=== PATIENT | female | born 1980 | race Hispanic/Latino ===

== ENCOUNTER 2017-01-24 14:02 | Emergency (ER) | payer MEDICAID ==
[2017-01-24 14:09] VITALS: TEMP 97.9
[2017-01-24] MEDS ORDERED: Sodium Chloride 0.9% 1,000 ML IV STA (14:15)
[2017-01-24 14:55] LABS: RBC URINE 11 /hpf (0-3); URINE BACTERIA RARE (<OCC); URINE BILIRUBIN NEGATIVE (NEGATIVE); URINE BLOOD MODERATE (NEGATIVE); URINE COLOR STRAW (YELLOW); URINE GLUCOSE (UA) NEG (Normal); URINE KETONE TRACE mg/dL (NEGATIVE); URINE LEUKOCYTE ESTERASE NEG Leu/uL (Negative); URINE PROTEIN NEGATIVE (NEGATIVE); URINE UROBILINOGEN 0.2-1.0 mg/dL (0.2-1.0); WBC URINE 2 /hpf (0-5)
[2017-01-24 15:08] LABS: BASO % 0.3 % (0.0-2.0); EOS # 0.2 K/uL (0.0-0.7); EOS % 1.8 % (0.0-4.0); HEMATOCRIT 41.8 % (34.0-47.0); LYMPH # 1.6 K/uL (1.0-4.3); MEAN CELL VOLUME 95.2 fl (81.0-99.0); MEAN CORPUSCULAR HEMOGLOBIN 31.8 pg (27.0-31.0); MEAN CORPUSCULAR HGB CONC 33.4 g/dL (33.0-37.0); MEAN PLATELET VOLUME 9.3 fl (7.2-11.7); MONO # 0.4 K/uL (0.0-0.8); MONO % 4.3 % (0.0-10.0); NEUT # 7.7 K/uL (1.8-7.0); NEUT % 77.6 % (50.0-75.0); RED CELL DISTRIBUTION WIDTH 13.3 % (11.5-14.5); WHITE BLOOD COUNT 9.9 K/uL (4.8-10.8)
[2017-01-24 15:18] LABS: ALB/GLOB RATIO 1.5 (1.0-2.1); ALKALINE PHOSPHATASE 75 U/L (38-126); ALT/SGPT 57 U/L (9-52); AST/SGOT 36 U/L (14-36); BLOOD UREA NITROGEN 14 mg/dl (7-17); CALCIUM 9.9 mg/dL (8.4-10.2); CARBON DIOXIDE 25 mmol/L (22-30); CHLORIDE 100 mmol/L (98-107); GFR AFRICAN-AMERICAN > 60; GLUCOSE,RANDOM 108 mg/dL (65-105); POTASSIUM 3.7 MMOL/L (3.6-5.0); SODIUM 139 mmol/l (132-148); TOTAL PROTEIN 8.4 G/DL (6.3-8.2)
--- NOTE | 2017-01-24 16:45 | ED PDOC ---
HPI: General Adult Time Seen by Provider: 01/24/17 14:09 Chief Complaint (Nursing): Female Genitourinary Chief Complaint (Provider): Female Genitourinary History Per: Patient History/Exam Limitations: no limitations Onset/Duration Of Symptoms: Days (x2 days) Current Symptoms Are (Timing): Still Present Additional Complaint(s): 36 y/o female presents to the emergency department with a complaint of bilateral flank pain, bladder fullness, and fatigue x2 days. Reports she urinates normally with some frequency. States she was diagnosed in the past with "distressed kidneys," but unsure of specific diagnosis and etiology of stressed kidneys. Denies history of alcohol abuse, fever, or abdominal pain. Past Medical History Reviewed: Historical Data, Nursing Documentation, Vital Signs Vital Signs: Last Vital Signs Temp 97.9 F 01/24/17 14:07 Pulse 85 01/24/17 14:07 Resp 16 01/24/17 14:07 BP 154/84 H 01/24/17 14:07 Pulse Ox 100 01/24/17 16:51 - Medical History PMH: No Chronic Diseases - Surgical History Surgical History: No Surg Hx - Family History Family History: States: Unknown Family Hx - Allergies Allergies/Adverse Reactions: Allergies Allergy/AdvReac Type Severity Reaction Status Date / Time No Known Allergies Allergy Verified 01/24/17 14:07 Review of Systems ROS Statement: Except As Marked, All Systems Reviewed And Found Negative Constitutional: Positive for: Other (Fatigue). Negative for: Fever Gastrointestinal: Negative for: Abdominal Pain Genitourinary Female: Positive for: Frequency (with bladder fullness) Musculoskeletal: Positive for: Other (Flank pain b/l) Physical Exam - Reviewed Nursing Documentation Reviewed: Yes Vital Signs Reviewed: Yes - Physical Exam Appears: Positive for: Well, Non-toxic, No Acute Distress Head Exam: Positive for: ATRAUMATIC, NORMAL INSPECTION, NORMOCEPHALIC Skin: Positive for: Normal Color, Warm, Dry Eye Exam: Positive for: Normal appearance ENT: Positive for: Normal ENT Inspection Neck: Positive for: Normal, Supple Cardiovascular/Chest: Positive for: Regular Rate, Rhythm. Negative for: Murmur Respiratory: Positive for: Normal Breath Sounds. Negative for: Accessory Muscle Use, Wheezing, Respiratory Distress Gastrointestinal/Abdominal: Positive for: Normal Exam, Soft. Negative for: Tenderness Extremity: Positive for: Normal ROM. Negative for: Pedal Edema Neurologic/Psych: Positive for: Alert, Oriented (x3) - Laboratory Results Result Diagrams: 01/24/17 15:04 01/24/17 15:04 - ECG O2 Sat by Pulse Oximetry: 100 (RA) Pulse Ox Interpretation: Normal Medical Decision Making Medical Decision Making: Time: 14:15 Initial impression: Work up for possible UTI/ renal colic/ kidney injuries/ other with IV fluids and blood work Initial plan: --CMP --Urine Preg-DIP --CBC w/ diff --Sodium Chloride 1L IV --Urine Culture --Urinalysis --Renal US --Reevaluation Time: 16:54 --Renal US FINDINGS: RIGHT KIDNEY: Measures: 9.4 cm. Normal in size, contour and echogenicity. No stone, solid mass lesion or hydronephrosis visualized. LEFT KIDNEY: Measures: 11.3 cm. Normal in size, contour and echogenicity. No stone, solid mass lesion or hydronephrosis visualized. OTHER FINDINGS: None. IMPRESSION: Normal examination. Scribe Attestation: Documented by Fanny Shen, acting as a scribe for Félix Trotter MD. Provider Scribe Attestation: All medical record entries made by the Scribe were at my direction and personally dictated by me. I have reviewed the chart and agree that the record accurately reflects my personal performance of the history, physical exam, medical decision making, and the department course for this patient. I have also personally directed, reviewed, and agree with the discharge instructions and disposition. Disposition - Disposition Forms: [employer] (Hebrew)
--- NOTE | 2017-01-24 16:56 | US ---
PROCEDURE: Ultrasound of the Kidneys HISTORY: b/l flank pain COMPARISON: None available. TECHNIQUE: Grayscale imaging was performed. FINDINGS: RIGHT KIDNEY: Measures: 9.4 cm. Normal in size, contour and echogenicity. No stone, solid mass lesion or hydronephrosis visualized. LEFT KIDNEY: Measures: 11.3 cm. Normal in size, contour and echogenicity. No stone, solid mass lesion or hydronephrosis visualized. OTHER FINDINGS: None. IMPRESSION: Normal examination.
[2017-01-24 18:11] VITALS: BP 148/80; PULSE 80; RESP 18; O2SAT 98
== END 2017-01-24 18:11 | disposition home or self-care (01) ==
LOC: H.ER 14:02
DX: N20.0 Calculus of kidney (principal); R53.83 Other fatigue
CPT/HCPCS: 76770; 80053; 81003; 81025; 85025; 87086; 87181; 99283; J7040

== ENCOUNTER 2017-01-25 11:20 | Emergency (ER) | payer SELFPAY ==
[2017-01-25 11:25] VITALS: BP 129/80; PULSE 89; TEMP 98; O2SAT 100
[2017-01-25 11:27] VITALS: BMI 21.9
--- NOTE | 2017-01-25 12:08 | ED PDOC ---
HPI: CCC, URI, Sore Throat Time Seen by Provider: 01/25/17 11:59 Chief Complaint (Nursing): ENT Problem History Per: Patient History/Exam Limitations: no limitations Have you had recent travel within the past 21 days to any of the following countries: [place], [place], [place] or [place]?: No Onset/Duration Of Symptoms: Days Current Symptoms Are (Timing): Still Present Location Of Pain: Throat, Sinus/es Sick Contacts (Context): Friend(s) Associated Symptoms: Fever (subjective), Sore Throat, Cough, Sinus Drainage Ear Symptoms: Bilateral: None Severity: Mild Additional Complaint(s): complains of subjective fever, cough and runny nose since yesterday. Patient attempted to go to clinic but was unable to be seen today. 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 Past Medical History Reviewed: Historical Data, Nursing Documentation, Vital Signs Vital Signs: Last Vital Signs Temp 98 F 01/25/17 11:24 Pulse 89 01/25/17 11:24 Resp BP 129/80 01/25/17 11:24 Pulse Ox 100 01/25/17 12:08 - Medical History PMH: No Chronic Diseases - Surgical History Surgical History: No Surg Hx - Family History Family History: States: Unknown Family Hx - Living Arrangements Living Arrangements: Other (nursing home) - Home Medications Home Medications: Ambulatory Orders Medication Instructions Recorded Ciprofloxacin [Cipro] 500 mg PO BID #10 tab 01/24/17 Naproxen [Naprosyn] 500 mg PO BID PRN #14 tablet 01/24/17 Azithromycin [Zithromax] 250 mg PO DAILY #6 tab 01/25/17 - Allergies Allergies/Adverse Reactions: Allergies Allergy/AdvReac Type Severity Reaction Status Date / Time No Known Allergies Allergy Verified 01/24/17 14:07 Review of Systems Constitutional: Positive for: Fever (subjective). Negative for: Chills, Sweats Eyes: Negative for: Vision Change ENT: Positive for: Nose Congestion, Throat Pain. Negative for: Ear Pain Cardiovascular: Negative for: Chest Pain, Palpitations Respiratory: Positive for: Cough. Negative for: Shortness of Breath, Sputum Gastrointestinal: Negative for: Vomiting, Abdominal Pain, Diarrhea Musculoskeletal: Positive for: Back Pain Skin: Negative for: Rash Neurological: Positive for: Headache. Negative for: Dizziness Physical Exam - Reviewed Nursing Documentation Reviewed: Yes Vital Signs Reviewed: Yes - Physical Exam Appears: Positive for: Non-toxic, No Acute Distress Head Exam: Positive for: ATRAUMATIC, NORMAL INSPECTION, NORMOCEPHALIC Skin: Positive for: Warm, Dry. Negative for: Rash Eye Exam: Positive for: Normal appearance, EOMI, PERRL ENT: Positive for: TM Is/Are (normal pearly), Nasal Congestion, Pharyngeal Erythema. Negative for: Tonsillar Exudate, Tonsillar Swelling Neck: Positive for: Normal, Painless ROM Cardiovascular/Chest: Positive for: Regular Rate, Rhythm, Chest Non Tender. Negative for: Murmur Respiratory: Positive for: Normal Breath Sounds. Negative for: Wheezing, Respiratory Distress Gastrointestinal/Abdominal: Positive for: Soft. Negative for: Tenderness Extremity: Positive for: Normal ROM. Negative for: Tenderness, Deformity, Swelling Neurologic/Psych: Positive for: Alert, Oriented - ECG O2 Sat by Pulse Oximetry: 100 Medical Decision Making Medical Decision Making: Patient with cough and congestion, no fever and benign exam. Symptoms likely viral however patient insisting on antibiotics because she needs to get better. Advise patient on supportive treatment and will give Rx if symptoms persist Disposition - Clinical Impression Clinical Impression: Upper respiratory infection - Patient ED Disposition Is Patient to be Admitted: No Counseled Patient/Family Regarding: Diagnosis, Rx Given - Disposition Referrals: [facility] [Outside] Disposition: Routine/Home Disposition Time: 12:07 Condition: STABLE Additional Instructions: Take Tylenol or Motrin alternating every 4-6 hours for Fever 100.4F or higher. Rest and drink plenty of fluids. Try taking over the counter antihistamine ( Claritin, Angelia, Zyrtec), Decongestant or Cough medicine (Mucinex) as needed every 6-8 hours. Follow up with your primary medical doctor or clinic in 1 week for further evaluation. Prescriptions: Azithromycin [Zithromax] 250 mg PO DAILY #6 tab Instructions: Upper Respiratory Infection (ED) Forms: [employer] (Frisian) - POA Present On Arrival: None
== END 2017-01-25 14:19 | disposition home or self-care (01) ==
LOC: H.ER 11:20
DX: J06.9 Acute upper respiratory infection, unspecified (principal)

== ENCOUNTER 2017-06-18 15:47 | Emergency (ER) | payer OTHER ==
[2017-06-18 15:47] VITALS: BMI 21.9
[2017-06-18 16:07] VITALS: BP 127/52; PULSE 89; RESP 16; TEMP 100.6; O2SAT 100
--- NOTE | 2017-06-18 16:44 | ED PDOC ---
HPI: General Adult Time Seen by Provider: 06/18/17 16:09 Chief Complaint (Nursing): Flu-like Symptoms Chief Complaint (Provider): Flu-Like Symptoms History Per: Patient History/Exam Limitations: no limitations Onset/Duration Of Symptoms: Days (x3) Current Symptoms Are (Timing): Still Present Additional Complaint(s): 36 year old female presents to ED with complaints of flu-like symptoms x3 days and has no relevant past medical history. (+) cough, congestion, fever, body aches, and sore throat. (-) SOB, chest pain, hemoptysis, or palpitations. PCP: Non [facility] Past Medical History Reviewed: Historical Data, Nursing Documentation, Vital Signs Vital Signs: Last Vital Signs Temp 100.6 F H 06/18/17 16:04 Pulse 89 06/18/17 16:04 Resp 16 06/18/17 16:04 BP 127/52 L 06/18/17 16:04 Pulse Ox 100 06/18/17 16:45 - Medical History PMH: Denies: Chronic Kidney Disease Other PMH: venous insufficiency - Surgical History Surgical History: No Surg Hx - Family History Family History: States: Unknown Family Hx - Home Medications Home Medications: Ambulatory Orders Medication Instructions Recorded Ciprofloxacin [Cipro] 500 mg PO BID #10 tab 01/24/17 Naproxen [Naprosyn] 500 mg PO BID PRN #14 tablet 01/24/17 Azithromycin [Zithromax] 250 mg PO DAILY #6 tab 01/25/17 Acetaminophen [Tylenol 325mg tab] 975 mg PO Q4 PRN #30 tab 06/18/17 Benzonatate [Tessalon Perle] 100 mg PO Q8 PRN #20 capsule 06/18/17 - Allergies Allergies/Adverse Reactions: Allergies Allergy/AdvReac Type Severity Reaction Status Date / Time No Known Allergies Allergy Verified 01/24/17 14:07 Review of Systems ROS Statement: Except As Marked, All Systems Reviewed And Found Negative Constitutional: Positive for: Fever, Other ((+) body aches) ENT: Positive for: Nose Congestion, Throat Pain Cardiovascular: Negative for: Chest Pain, Palpitations Respiratory: Positive for: Cough. Negative for: Shortness of Breath, Hemoptysis Physical Exam - Reviewed Nursing Documentation Reviewed: Yes Vital Signs Reviewed: Yes - Physical Exam Appears: Positive for: Non-toxic, No Acute Distress Skin: Positive for: Normal Color, Warm, Dry Eye Exam: Positive for: Normal appearance, EOMI, PERRL ENT: Positive for: Normal ENT Inspection Neck: Positive for: Normal, Painless ROM, Supple Cardiovascular/Chest: Positive for: Regular Rate, Rhythm Respiratory: Positive for: Normal Breath Sounds. Negative for: Respiratory Distress Gastrointestinal/Abdominal: Positive for: Soft. Negative for: Tenderness Neurologic/Psych: Positive for: Alert, Oriented. Negative for: Motor/Sensory Deficits - ECG O2 Sat by Pulse Oximetry: 100 (RA) Pulse Ox Interpretation: Normal Medical Decision Making Medical Decision Makin Initial impression: flu-like illness Initial plan: * Benzonatate 200mg PO * Acetaminophen 975mg PO * Re-eval Scribe Attestation: Documented by Kimberly Abbasi, acting as a scribe for Patrice Denis PA-C. Provider Scribe Attestation: All medical record entries made by the Scribe were at my direction and personally dictated by me. I have reviewed the chart and agree that the record accurately reflects my personal performance of the history, physical exam, medical decision making, and the department course for this patient. I have also personally directed, reviewed, and agree with the discharge instructions and disposition. Disposition - Clinical Impression Clinical Impression: Influenza-like symptoms - Patient ED Disposition Is Patient to be Admitted: No - Disposition Referrals: [facility] [Outside] Disposition: Routine/Home Disposition Time: 16:30 Condition: STABLE Additional Instructions: Drink plenty of water. Rest. Follow up with [facility] for further evaluation. Prescriptions: Acetaminophen [Tylenol 325mg tab] 975 mg PO Q4 PRN #30 tab PRN Reason: Fever >100.4 F Benzonatate [Tessalon Perle] 100 mg PO Q8 PRN #20 capsule PRN Reason: Cough Instructions: Influenza (ED) Forms: [email or web address] (Spanish), [facility] ED School/Work Excuse
== END 2017-06-18 17:04 | disposition home or self-care (01) ==
LOC: H.ER 15:47
DX: J11.1 Influenza due to unidentified influenza virus with other respiratory manifestations (principal)